=== PATIENT | male | born 1995 | race Caucasian/White ===

== ENCOUNTER 2018-11-09 02:53 | Emergency (ER) | payer SELFPAY ==
[2018-11-09] MEDS ORDERED: Lidocaine 1% w/Epinephrine 1:100K 20 ML VIAL ONE (03:34)
== END 2018-11-09 04:10 | disposition home or self-care (01) ==
LOC: EDSEX → ERS 02:53
DX: L05.01 Pilonidal cyst with abscess (principal)
CPT/HCPCS: 10080; J2001

== ENCOUNTER 2018-11-11 03:32 | Emergency (ER) | payer SELFPAY | END 2018-11-11 04:05 | disposition home or self-care (01) | LOC: ERS 03:32 → EDSEX 03:32 → ERS 04:05 | DX: Z48.817 Encounter for surgical aftercare following surgery on the skin and subcutaneous tissue (principal) | CPT/HCPCS: 99282 ==